=== PATIENT | female | born 1950 | race Caucasian/White ===

== ENCOUNTER 2025-03-07 13:51 | Day surgery (SDC) | payer MEDICARE, BC ==
[2025-03-07] MEDS: Tetracaine HCl/PF 0.5% 4 ML Bottle EYEBOTH SCH (07:24)
[2025-03-07] MEDS: Lidocaine 1% PF 2 ML SDV INJECT SCH (07:24)
[2025-03-07] MEDS: Cefuroxime 10 MG/ML SYRINGE EYELF SCH (07:24)
[2025-03-07] MEDS: Polymyxin B/Trimethoprim 10 ML Bottle EYELF SCH (07:25)
[2025-03-07] MEDS: Pilocarpine 4% Ophth Soln 15 ML Bot EYELF SCH (07:25)
[2025-03-07] MEDS: Tropicamide 1% Ophth Soln 3 ML Bottle EYELF SCH (14:38)
== END 2025-03-07 16:28 | disposition home or self-care (01) ==
LOC: JD.SDS 13:51
PROVIDERS: ATTEND Ophthalmology
DX: H25.813 Combined forms of age-related cataract, bilateral (principal); H21.81 Floppy iris syndrome; H21.40 Pupillary membranes, unspecified eye; H33.311 Horseshoe tear of retina without detachment, right eye; H43.813 Vitreous degeneration, bilateral; H35.3131 Nonexudative age-related macular degeneration, bilateral, early dry stage; H35.363 Drusen (degenerative) of macula, bilateral; H35.372 Puckering of macula, left eye; H16.103 Unspecified superficial keratitis, bilateral; H16.223 Keratoconjunctivitis sicca, not specified as Sjogren's, bilateral; H02.831 Dermatochalasis of right upper eyelid; H02.834 Dermatochalasis of left upper eyelid; H57.813 Brow ptosis, bilateral; I10 Essential (primary) hypertension; E78.00 Pure hypercholesterolemia, unspecified; Z88.8 Allergy status to other drugs, medicaments and biological substances
CPT/HCPCS: 66982; A9270; J0697; J3490

== ENCOUNTER 2025-04-04 13:10 | Day surgery (SDC) | payer MEDICARE, BC ==
[2025-04-04] MEDS: Polymyxin B/Trimethoprim 10 ML Bottle EYERT SCH (14:11)
[2025-04-04] MEDS: Tropicamide 1% Ophth Soln 3 ML Bottle EYERT SCH (14:28)
[2025-04-04] MEDS: Tetracaine HCl/PF 0.5% 4 ML Bottle EYEBOTH SCH (15:18)
[2025-04-04] MEDS: Cefuroxime 10 MG/ML SYRINGE EYERT SCH (15:39)
[2025-04-04] MEDS: Lidocaine 1% PF 2 ML SDV INJECT SCH (15:45)
[2025-04-04] MEDS: Pilocarpine 4% Ophth Soln 15 ML Bot EYERT SCH (16:00)
== END 2025-04-04 16:06 ==
LOC: JD.SDS 13:10
PROVIDERS: ATTEND Ophthalmology
DX: H25.811 Combined forms of age-related cataract, right eye (principal); H21.81 Floppy iris syndrome; H43.813 Vitreous degeneration, bilateral; H52.31 Anisometropia; H16.103 Unspecified superficial keratitis, bilateral; H16.223 Keratoconjunctivitis sicca, not specified as Sjogren's, bilateral; H02.834 Dermatochalasis of left upper eyelid; H02.831 Dermatochalasis of right upper eyelid; H57.813 Brow ptosis, bilateral; I10 Essential (primary) hypertension; Z96.1 Presence of intraocular lens; Z79.899 Other long term (current) drug therapy
CPT/HCPCS: 66982; A9270; J0697; J2003; 00142; 99100; J3490; V2632